=== PATIENT | female | born 1935 | race Hispanic/Latino ===

== ENCOUNTER → 2018-04-08 | Day surgery (SDC) | payer OTHER, MEDICARE ==
[2018-04-06 08:17] LABS: BASOPHILS % 0.5 % (0.0-1.0); EOSINOPHILS # (AUTO) 0.3 (0.0-0.4); EOSINOPHILS % 3.8 % (0.0-6.0); HEMATOCRIT 35.5 % (34.2-44.1); LYMPHOCYTES # (AUTO) 1.4 (1.0-3.2); LYMPHOCYTES % 20.5 % (18.0-39.1); MEAN CORPUSCULAR HEMOGLOBIN 25.4 pg (28-32); MONOCYTES # (AUTO) 0.5 (0.2-0.8); NEUTROPHILS # (AUTO) 4.5 (2.1-6.9); NEUTROPHILS % 66.9 % (38.7-80.0); PLATELET COUNT 181 x10e3/uL (140-360); RED BLOOD COUNT 4.33 x10e6/uL (3.6-5.1); RED CELL DISTRIBUTION WIDTH 15.5 % (11.7-14.4)
[2018-04-06 08:36] LABS: ANION GAP 11.9 mmol/L (8-16); CALCIUM 8.8 mg/dL (8.4-10.2); CREATININE, SERUM 0.93 mg/dL (0.57-1.11); POTASSIUM 3.9 mmol/L (3.5-5.1)
[~2018-04-08] MED LIST: AMLODIPINE BESY10 MG PO; ASPIR 8181 MG PO; ATORVASTATIN CA40 MG PO; CHONDR SU A NA/HYALUR SOD 1 EACH KIT IO ONE; CYCLOPENTOLATE HCL 2% OPTH SOLN 2 ML BTL OP ONE; EPINEPHRINE HCL 1:1000 1ML 1 MG/ML AMP ONE; FOLIC ACID0.8 MG PO; GATIFLOXACIN(OPTH) 5 ML LIQD ONE; HYDRALAZINE HC100 MG PO; LIDOCAINE 2% /EPINEPHRINE 20 ML SDV INJ ONE; LIDOCAINE HCL-PF 4% 40 MG/1 ML 5ML AMP ONE; LOSARTAN POTASS50 MG PO; METFORMIN HCL1000 MG PO; METOPROLOL TART50 MG PO; MIDAZOLAM HCL 2 MG/2 ML VIAL ONE; ONE DAILY MULT1 EAC1 PO; OXYBUTYNIN CHLO10 MG PO; PHENYLEPHRINE HCL 2 ML DROPS ONE; PILOCARPINE HCL(OPTH) 15 ML LIQD ONE; POVIDONE IODINE 5% (OPTH) 30 ML BTL ONE; PROPOFOL IV EMULSION 10 MG/ML 20 ML VIAL ONE; QUETIAPINE FUMA25 MG PO; SERTRALINE HCL100 MG PO; TOBRAMYCIN/DEXAMETHASONE(OPTH) 3.5 GM TUBE ONE; VITAMIN B-125000 MCG PO; VITAMIN D32000 UNI1 PEG
--- OUTSIDE RECORDS SUMMARY | 2018-04-08 06:30 | XMS REPORT ---
Author Author Coleman Mullen [facility] eClinicalWorks Address Unknown Phone Unavailable Care Team Providers Care Sanitation Tank Washer Name Role Phone Coleman Mullen CP Unavailable Allergies, Adverse Reactions, Alerts Substance Reaction Event Type lorazepam no more anxiety Non Drug Allergy Encounters Encounter Location Date 3M F/U Kody Arroyo MD July 22, 2013 Problems Problem Type Condition ICD-9 Code Onset Dates Condition Status Problem Postmenopausal status (age-related) V49.81 Active Problem Long-term (current) use of other medications - High Risk V58.69 Active Problem Hypertension 997.91 Active Assessment Rheumatoid arthritis 714.0 Active Assessment Long-term (current) use of other medications - High Risk V58.69 Active Problem Anemia of other chronic disease 285.29 Active Problem Rheumatoid arthritis 714.0 Active Medications Medication Code System Code Instructions Start Date End Date Status Dosage Losartan Potassium [facility] [address]-97 50MG Orally Once a day Active 2 tablets Sertraline HCl [facility] [address]-14 10 mg Orally Once a day Active 1 tablet Oxybutynin Chloride ER [facility] [address]-91 10 MG Orally Active Unknown NIFEdipine [facility] [address]-68 90 MG Orally Once a day Active 1 tablet Celebrex [facility] [address]-33 200 Milligram July 22, 2013 Inactive TAKE 1 CAPSULE BY MOUTH EVERY DAY Nexium [facility] [address]-88 40 MG Orally once a day Active 1 tablet Folic Acid [facility] [address]-95 1 MG Orally Once a day Active TAKE 1 TABLET BY MOUTH DAILY PredniSONE [facility] [address]-45 1 MG Orally Once a day Active TAKE 4 TABLETS Lorazepam [facility] [address]-31 0.5 MG Orally Once a day Active 1 tablet at bedtime as needed Seroquel [facility] [address]-87 25 MG Orally once a day Active 1 tablet Metformin HCl [facility] [address]-94 1000 MG Orally twice a day Active 1 Metoprolol Succinate [facility] [address]-83 25 mg Orally twice a day Active 1 tablet Potassium Chloride Lanny CR [facility] [address]-15 20 MEQ Orally once a day Active 1 tablet Methotrexate Sodium (PF) [facility] [address]-27 250 MG/10ML Injection once a week Oct 14, 2012 Active 1 ml Clonidine HCl [facility] [address]-32 0.1 MG Orally three times a day Active 1 tablet HydrALAZINE HCl [facility] [address]-99 100 MG Orally three times a day Active 1 tablet Coxzoyl731 [facility] [address]-08 500-50 MG Orally every 12 hrs May 20, 2013 August 18, 2013 Active 1 capsule Social History Social History Element Qualifiers Date Reported Alcohol Screening: . Points: 0, Interpretation: Negative July 22, 2013 Tobacco Use: . Are you a:: never smoker July 22, 2013 Marital Status: . July 22, 2013 Caffeine: yes. frequency:, 1-5, cups/day July 22, 2013 Exercise: no. July 22, 2013 Alcohol: no. July 22, 2013 Occupation: . unemployed July 22, 2013 Vital Signs Date/Time: July 22, 2013 Blood Pressure Systolic 140 mm Hg Temperature 98.0 F Cardiac Monitoring Heart Rate 68 /min Blood Pressure Diastolic 72 mm Hg Results CBC (INCLUDES DIFF/PLT) ABSOLUTE LYMPHOCYTES(-850-3900 cells/uL) 2125 ABSOLUTE NEUTROPHILS(-4534-6837 cells/uL) 3729 BASOPHILS(- %) 0.5 HEMOGLOBIN(-11.7-15.5 g/dL) 10.0 EOSINOPHILS(- %) 3.1 HEMATOCRIT(-35.0-45.0 %) 32.2 MONOCYTES(- %) 7.7 MCV(-80.0-100.0 fL) 77.1 LYMPHOCYTES(- %) 32.2 MCH(-27.0-33.0 pg) 24.0 NEUTROPHILS(- %) 56.5 MCHC(-32.0-36.0 g/dL) 31.1 ABSOLUTE BASOPHILS(-0-200 cells/uL) 33 RDW(-11.0-15.0 %) 23.9 WHITE BLOOD CELL COUNT(-3.8-10.8 Thousand/uL) 6.6 PLATELET COUNT(-140-400 Thousand/uL) 242 ABSOLUTE EOSINOPHILS(-15-500 cells/uL) 205 RED BLOOD CELL COUNT(-3.80-5.10 Million/uL) 4.18 ABSOLUTE MONOCYTES(-200-950 cells/uL) 508 SED RATE BY MODIFIED WESTERGREN SED RATE BY MODIFIED WESTERGREN(-< OR=30 mm/h) 5 COMPREHENSIVE METABOLIC PANEL W/EGFR ALBUMIN/GLOBULIN RATIO(-1.0-2.5 (calc)) 1.3 GLOBULIN(-1.9-3.7 g/dL (calc)) 2.9 ALKALINE PHOSPHATASE(-33-130 U/L) 52 BILIRUBIN, TOTAL(-0.2-1.2 mg/dL) 0.2 CHLORIDE(-98-110 mmol/L) 105 ALT(-6-29 U/L) 10 POTASSIUM(-3.5-5.3 mmol/L) 4.1 AST(-10-35 U/L) 13 SODIUM(-135-146 mmol/L) 142 BUN/CREATININE RATIO(-6-22 (calc)) NOT APPLICABLE eGFR (-> OR=60 mL/min/1.73m2) 79 CALCIUM(-8.6-10.4 mg/dL) 9.4 CARBON DIOXIDE(-19-30 mmol/L) 27 ALBUMIN(-3.6-5.1 g/dL) 3.9 PROTEIN, TOTAL(-6.1-8.1 g/dL) 6.8 GLUCOSE(-65-99 mg/dL) 96 UREA NITROGEN (BUN)(-7-25 mg/dL) 14 CREATININE(-0.60-0.93 mg/dL) 0.83 eGFR NON-AFR. KENYAN(-> OR=60 mL/min/1.73m2) 68 C-REACTIVE PROTEIN C-REACTIVE PROTEIN(-<0.80 mg/dL) 0.13 Summary Purpose eClinicalWorks Submission
--- OUTSIDE RECORDS SUMMARY | 2018-04-08 06:30 | XMS REPORT ---
Author Author Maryuri Patel [facility] eClinicalWorks Address Unknown Phone Unavailable Care Team Providers Care Inclusion Teacher Name Role Phone Maryuri Patel CP Unavailable Allergies, Adverse Reactions, Alerts Substance Reaction Event Type lorazepam no more anxiety Non Drug Allergy Encounters Encounter Location Date F/U Kody Arroyo MD Dec 07, 2013 3M F/U Kody Arroyo MD Mar 07, 2014 MRI Bi Wrists Kody Arroyo MD Apr 25, 2014 MRI Bi Wrists In $60 Kody Arroyo MD Apr 25, 2014 3M F/U Kody Arroyo MD July 22, 2013 CT neck Kody Arroyo MD Dec 08, 2013 Unknown Kody Arroyo MD Mar 10, 2014 MRI Kody Arroyo MD June 26, 2014 MRI Cancelled Kody Arroyo MD June 05, 2014 3M F/U Kody Arroyo MD June 05, 2014 Problems Problem Type Condition ICD-9 Code Onset [...] Instructions Start Date End Date Status Dosage Oxybutynin Chloride ER [facility] [address]-55 10 MG Orally once a day Active Unknown Metoprolol Succinate [facility] [address]-86 50mg Orally twice a day Active 1 tablet Atorvastatin Calcium [facility] [address]-42 80 MG Orally Once a day Active 1 tablet Amlodipine Besylate [facility] [address]-19 10 MG Orally Once a day Active 1 tablet Clopidogrel Bisulfate [facility] [address]-59 75 MG Orally Once a day Active 1 tablet Seroquel [facility] [address]-67 25 MG Orally once a day Active 1 tablet Methotrexate [facility] [address]-14 2.5 MG Orally once a week Mar 07, 2014 Active 4 tablets PredniSONE [facility] [address]-99 5mg Orally Once a day Active 1 tablet Vitamin D High Potency [facility] 44473-55511 2000 UNIT Orally Once a day Active 1 capsule Tramadol Unknown 0 50 mg orally every 4-6 hours prn pain Active one tab Folic Acid [facility] [address]-09 1 MG Orally Once a day Active TAKE 1 TABLET BY MOUTH DAILY Aspir-81 [facility] [address]-56 81 MG Orally Once a day Active 1 tablet HydrALAZINE HCl [facility] [address]-49 100 MG Orally every 8 hours Active 1 tablet Nexium [facility] [address]-74 40 MG Orally once a day Active 1 tablet Sertraline HCl [facility] [address]-49 100 mg Orally Once a day Active 1 tablet Metformin HCl [facility] [address]-15 1000 MG Orally once a day Active 1 tablet Social History Social History Element Qualifiers Date Reported Diet: no. June 05, 2014 Alcohol Screening: . Points: 0, Interpretation: Negative June 05, 2014 Tobacco Use: . Are you a:: never smoker June 05, 2014 Marital Status: . June 05, 2014 Caffeine: yes. frequency:, 1-5, cups/day June 05, 2014 Exercise: no. June 05, 2014 Alcohol: no. June 05, 2014 Occupation: . unemployed June 05, 2014 Vital Signs Date/Time: June 05, 2014 Blood Pressure Systolic 112 mm Hg Temperature 97.3 F Cardiac Monitoring Heart Rate 68 /min Blood Pressure Diastolic 72 mm Hg Results COMPREHENSIVE METABOLIC PANEL W/EGFR CALCIUM(-8.6-10.4 mg/dL) 9.0 CARBON DIOXIDE(-19-30 mmol/L) 28 ALT(-6-29 U/L) 18 CREATININE(-0.60-0.93 mg/dL) 0.92 AST(-10-35 U/L) 24 eGFR NON-AFR. MALDIVIAN(-> OR=60 mL/min/1.73m2) 60 ALKALINE PHOSPHATASE(-33-130 U/L) 74 eGFR (-> OR=60 mL/min/1.73m2) 70 BILIRUBIN, TOTAL(-0.2-1.2 mg/dL) 0.3 BUN/CREATININE RATIO(-6-22 (calc)) NOT APPLICABLE ALBUMIN/GLOBULIN RATIO(-1.0-2.5 (calc)) 1.4 SODIUM(-135-146 mmol/L) 142 GLOBULIN(-1.9-3.7 g/dL (calc)) 2.8 POTASSIUM(-3.5-5.3 mmol/L) 3.3 GLUCOSE(-65-99 mg/dL) 126 CHLORIDE(-98-110 mmol/L) 104 ALBUMIN(-3.6-5.1 g/dL) 4.0 UREA NITROGEN (BUN)(-7-25 mg/dL) 22 PROTEIN, TOTAL(-6.1-8.1 g/dL) 6.8 SED RATE BY MODIFIED WESTERGREN SED RATE BY MODIFIED WESTERGREN(-< OR=30 mm/h) 5 C-REACTIVE PROTEIN C-REACTIVE PROTEIN(-<0.80 mg/dL) 0.11 CBC (INCLUDES DIFF/PLT) MCHC(-32.0-36.0 g/dL) 30.0 MCH(-27.0-33.0 pg) 19.4 PLATELET COUNT(-140-400 Thousand/uL) 176 RDW(-11.0-15.0 %) 20.2 ABSOLUTE LYMPHOCYTES(-850-3900 cells/uL) 964 ABSOLUTE MONOCYTES(-200-950 cells/uL) 435 ABSOLUTE NEUTROPHILS(-4982-2046 cells/uL) 6360 NEUTROPHILS(- %) 80.5 HEMATOCRIT(-35.0-45.0 %) 25.6 LYMPHOCYTES(- %) 12.2 MCV(-80.0-100.0 fL) 64.8 RED BLOOD CELL COUNT(-3.80-5.10 Million/uL) 3.95 ABSOLUTE EOSINOPHILS(-15-500 cells/uL) 111 ABSOLUTE BASOPHILS(-0-200 cells/uL) 32 HEMOGLOBIN(-11.7-15.5 g/dL) 7.7 BASOPHILS(- %) 0.4 WHITE BLOOD CELL COUNT(-3.8-10.8 Thousand/uL) 7.9 MONOCYTES(- %) 5.5 EOSINOPHILS(- %) 1.4 Summary Purpose eClinicalWorks Submission
--- OUTSIDE RECORDS SUMMARY | 2018-04-08 06:30 | XMS REPORT | Continuity of Care Document ---
Author Author [facility] Address Unknown Phone Unavailable Problems Problem Status Onset Date Classification Date Reported Comments Source Postmenopausal status Active Problem 11/18/2014 Shan Arroyo Long-term use of other medications - High Risk Active Problem 11/18/2014 Shan Arroyo Hypertension Active Problem 11/18/2014 Shan Arroyo Anemia of other chronic disease Active Problem 11/18/2014 Shan Arroyo Rheumatoid arthritis Active Problem 11/18/2014 Shan Arroyo Medications Medication Details Route Status Patient Instructions Ordering Provider Order Date Source Methotrexate 4 tablets Orally Active 2.5 MG Orally once a week Patel 03/07/2014 Shan Arroyo Celebrex TAKE 1 CAPSULE BY MOUTH EVERY DAY NA No Longer Active 200 Milligram Mullen 07/22/2013 Shan Arroyo [id number] 1 capsule Orally Active 500-50 MG Orally every 12 hrs Mullen 05/20/2013 Shan Arroyo Methotrexate Sodium (PF) 1 ml Injection Active 250 MG/10ML Injection once a week Mullen 10/14/2012 Shan Arroyo Oxybutynin Chloride ER Unknown Orally Active 10 MG Orally once a day Patel Shan Arroyo Metoprolol Succinate 1 tablet Orally Active 50mg Orally twice a day [place] Shan Arroyo Atorvastatin Calcium 1 tablet Orally Active 80 MG Orally Once a day [place] Shan Arroyo Amlodipine Besylate 1 tablet Orally Active 10 MG Orally Once a day [place] Shan Arroyo Clopidogrel Bisulfate 1 tablet Orally Active 75 MG Orally Once a day [place] Shan Arroyo Seroquel 1 tablet Orally Active 25 MG Orally once a day [place] Shan Arroyo PredniSONE 1 tablet Orally Active 5mg Orally Once a day Patel Shan Arroyo Vitamin D High Potency 1 capsule Orally Active 2000 UNIT Orally Once a day [place] Shan Arroyo Tramadol one tab orally Active 50 mg orally every 4-6 hours prn pain Patelsteven Arroyo Folic Acid TAKE 1 TABLET BY MOUTH DAILY Orally Active 1 MG Orally Once a day [place] Shan Arroyo Aspir-81 1 tablet Orally Active 81 MG Orally Once a day Jorge Arroyo HydrALAZINE HCl 1 tablet Orally Active 100 MG Orally every 8 hours Jorge Arroyo Nexium 1 tablet Orally Active 40 MG Orally once a day Jorge Arroyo Sertraline HCl 1 tablet Orally Active 100 mg Orally Once a day Jorge Arroyo Metformin HCl 1 tablet Orally Active 1000 MG Orally once a day Jorge Arroyo Losartan Potassium 2 tablets Orally Active 50MG Orally Once a day aPz Arroyo NIFEdipine 1 tablet Orally Active 90 MG Orally Once a day Mullenmelissa Arroyo Lorazepam 1 tablet at bedtime as needed Orally Active 0.5 MG Orally Once a day Paz Arroyo Potassium Chloride Lanny CR 1 tablet Orally Active 20 MEQ Orally once a day Paz Arroyo Clonidine HCl 1 tablet Orally Active 0.1 MG Orally three times a day Paz Arroyo HydrALAZINE HCl 1 tablet Orally Active 100 MG Orally three times a day Paz Arroyo Allergies, Adverse Reactions, Alerts Substance Category Reaction Severity Reaction type Status Date Reported Comments Source lorazepam Adverse Reaction no more anxiety Adverse Reaction Active 06/05/2014 Shan Arroyo Immunizations Immunization Date Given Site Status Last Updated Comments Source Results Order Name Results Value Reference Range Date Interpretation Comments Source Vital Signs Vital Sign Value Date Comments Source Systolic (mm Hg) 112 06/05/2014 Shan Arroyo Temperature Oral (F) 97.3 F 06/05/2014 Shan Arroyo Heart Rate 68 06/05/2014 Shan Arroyo Diastolic (mm Hg) 72 06/05/2014 Shan Arroyo Systolic (mm Hg) 140 07/22/2013 Shan Arroyo Temperature Oral (F) 98.0 F 07/22/2013 Shan Arroyo Heart Rate 68 07/22/2013 Shan Arroyo Diastolic (mm Hg) 72 07/22/2013 Shan Arroyo Encounters Location Location Details Encounter Type Encounter Number Reason For Visit Attending Provider ADM Date DC Date Status Source Kody Arroyo MD F/U [id number] 07/22/2013 07/22/2013 Shan Arroyo MD F/U [id number] 07/22/2013 07/22/2013 Shan Arroyo MD F/U [id number] 07/22/2013 07/22/2013 Shan Arroyo MD F/U [id number] 07/22/2013 07/22/2013 Shan Arroyo MD F/U [id number] 07/22/2013 07/22/2013 Shan Arroyo MD F/U [id number] 07/22/2013 07/22/2013 Shan Arroyo MD /U [id number] 12/07/2013 12/07/2013 Shan Arroyo MD /U [id number] 12/07/2013 12/07/2013 Shan Arroyo MD F/U [id number] 12/07/2013 12/07/2013 Shan Arroyo MD F/U [id number] 12/07/2013 12/07/[address] neck [id number] 12/08/2013 12/08/[address] neck [id number] 12/08/2013 12/08/[address] neck [id number] 12/08/2013 12/08/[address] neck [id number] 12/08/2013 12/08/[address] neck [id number] 12/08/2013 12/08/2013 Shan Arroyo MD F/U [id number] 03/07/2014 03/07/2014 Shan Arroyo MD F/U [id number] 03/07/2014 03/07/2014 Shan Arroyo MD F/U [id number] 03/07/2014 03/07/2014 Shan Arroyo MD F/U [id number] 03/07/2014 03/07/2014 Shan Arroyo MD Unknown [id number] 03/10/2014 03/10/2014 Shan Arroyo MD Unknown [id number] 03/10/2014 03/10/2014 Shan Arroyo MD Unknown [id number] 03/10/2014 03/10/2014 Shan Arroyo MD Unknown [id number] 03/10/2014 03/10/2014 Shan Arroyo MD MRI Bi Wrists In $60 [id number] 04/25/2014 04/25/2014 Shan Arroyo MD MRI Bi Wrists In $60 [id number] 04/25/2014 04/25/2014 Shan Arroyo MD MRI Bi Wrists In $60 [id number] 04/25/2014 04/25/2014 Shan Arroyo MD [facility] Wrists [id number] 04/25/2014 04/25/2014 Shan Arroyo MD [facility] [id number] 04/25/2014 04/25/2014 Shan Arroyo MD [facility] [id number] 04/25/2014 04/25/2014 Shan Arroyo MD [facility] [id number] 04/25/2014 04/25/2014 Shan Arroyo MD F/U [id number] 06/05/2014 06/05/2014 Shan Arroyo MD F/U [id number] 06/05/2014 06/05/2014 Shan Arroyo MD F/U [id number] 06/05/2014 06/05/2014 Shan Arroyo MD MRI Cancelled [id number] 06/05/2014 06/05/2014 Shan Arroyo MD MRI Cancelled [id number] 06/05/2014 06/05/2014 Shan Arroyo MD MRI Cancelled [id number] 06/05/2014 06/05/2014 Shan Arroyo MD MRI [id number] 06/26/2014 06/26/2014 Shan Arroyo MD MRI [id number] 06/26/2014 06/26/2014 Shan Arroyo MD MRI [id number] 06/26/2014 06/26/2014 Shan Arroyo MD F/U [id number] 09/05/2014 09/05/2014 Shan Arroyo MD MRI [id number] 11/13/2014 11/13/2014 Shan Arroyo Procedures Procedure Code Date Perfomer Comments Source
--- OUTSIDE RECORDS SUMMARY | 2018-04-08 06:30 | XMS REPORT ---
Author Author Kody Arroyo [facility] eClinicalWorks Address Unknown Phone Unavailable Care Team Providers Care Technical Support Coordinator Name Role Phone Kody Arroyo Unavailable Encounters Encounter Location Date 3M F/U Kody Arroyo MD July 22, 2013 CT neck Kody Arroyo MD Dec 08, 2013 Problems Problem Type Condition ICD-9 Code Onset Dates Condition Status Problem Postmenopausal status (age-related) V49.81 Active Problem Long-term (current) use of other medications - High Risk V58.69 Active Problem Hypertension 997.91 Active Problem Anemia of other chronic disease 285.29 Active Problem Rheumatoid arthritis 714.0 Active Social History Social History Element Qualifiers Date Reported Alcohol Screening: . Points: 0, Interpretation: Negative Dec 07, 2013 Tobacco Use: . Are you a:: never smoker Dec 07, 2013 Marital Status: . Dec 07, 2013 Caffeine: yes. frequency:, 1-5, cups/day Dec 07, 2013 Exercise: no. Dec 07, 2013 Alcohol: no. Dec 07, 2013 Occupation: . unemployed Dec 07, 2013 Summary Purpose eClinicalWorks Submission
--- OUTSIDE RECORDS SUMMARY | 2018-04-08 06:30 | XMS REPORT ---
Author Author Kody Arroyo [employer] Address Unknown Phone Unavailable Care Team Providers Care Painter Spring Name Role Phone Kody Arroyo CP Unavailable Encounters Encounter Location Date F/U Kody Arroyo [...] 2014 Occupation: . unemployed June 05, 2014 Summary Purpose eClinicalWorks Submission
--- OUTSIDE RECORDS SUMMARY | 2018-04-08 06:30 | XMS REPORT ---
Author Author Kody Arroyo eClinical[employer] Address Unknown Phone Unavailable Care Team Providers Care Regional Economic Liaison Name Role Phone Kody Arroyo CP Unavailable Encounters Encounter Location Date F/U Kody Arroyo MD Dec 07, 2013 3M F/U Kody Arroyo MD Mar 07, 2014 MRI Bi Wrists Kody Arroyo MD Apr 25, 2014 MRI Bi Wrists In $60 Kody Arroyo MD Apr 25, 2014 3M F/U Kody Arroyo MD July 22, 2013 3M F/U Kody Arroyo MD September 05, 2014 CT neck Kody Arroyo MD Dec 08, 2013 MRI Kody Arroyo MD Nov 12, 2014 Unknown Kody Arroyo MD Mar 10, 2014 [...] History Element Qualifiers Date Reported Diet: no. September 05, 2014 Alcohol Screening: . Points: 0, Interpretation: Negative September 05, 2014 Tobacco Use: . Are you a:: never smoker September 05, 2014 Marital Status: . September 05, 2014 Caffeine: yes. frequency:, 1-5, cups/day September 05, 2014 Exercise: no. September 05, 2014 Alcohol: no. September 05, 2014 Occupation: . unemployed September 05, 2014 Summary Purpose eClinicalWorks Submission
--- OUTSIDE RECORDS SUMMARY | 2018-04-08 06:30 | XMS REPORT ---
Author Author Kody Arroyo [facility] eClinicalWorks Address Unknown Phone Unavailable Care Team Providers Care Correctional Supply Supervisor Name Role Phone Kody Arroyo CP Unavailable Encounters Encounter Location Date F/U Kody Arroyo MD Dec 07, 2013 3M F/U Kody Arroyo MD Mar 07, 2014 MRI Bi Wrists Kody Arroyo MD Apr 25, 2014 3M F/U Kody Arroyo MD July 22, 2013 CT neck Kody Arroyo MD Dec 08, 2013 Unknown Kody Arroyo MD Mar 10, 2014 Problems Problem Type Condition ICD-9 Code Onset Dates Condition Status Problem Postmenopausal status (age-related) V49.81 Active Problem Long-term (current) use of other medications - High Risk V58.69 Active Problem Hypertension 997.91 Active Problem Anemia of other chronic disease 285.29 Active Problem Rheumatoid arthritis 714.0 Active Social History Social History Element Qualifiers Date Reported Alcohol Screening: . Points: 0, Interpretation: Negative Mar 07, 2014 Tobacco Use: . Are you a:: never smoker Mar 07, 2014 Marital Status: . Mar 07, 2014 Caffeine: yes. frequency:, 1-5, cups/day Mar 07, 2014 Exercise: no. Mar 07, 2014 Alcohol: no. Mar 07, 2014 Occupation: . unemployed Mar 07, 2014 Summary Purpose eClinicalWorks Submission
[2018-04-08 10:15] VITALS: BP 161/79
== END | disposition home or self-care (01) ==
LOC: OR 06:20
PROVIDERS: ATTEND Ophthalmology
DX: H25.12 Age-related nuclear cataract, left eye (principal); I69.398 Other sequelae of cerebral infarction; R53.1 Weakness; E11.9 Type 2 diabetes mellitus without complications; I10 Essential (primary) hypertension; I25.2 Old myocardial infarction; Z88.3 Allergy status to other anti-infective agents; Z01.812 Encounter for preprocedural laboratory examination; Z79.82 Long term (current) use of aspirin; Z79.84 Long term (current) use of oral hypoglycemic drugs
CPT/HCPCS: 36415 ×2; 66982; 80048; 82948; 85025; J0171; J2001; J2250; J2704; V2632